=== PATIENT | male | born 2000 | race Caucasian/White ===

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

== ENCOUNTER 2018-08-31 17:24 | Emergency (ER) | payer BC ==
--- NOTE | 2018-08-31 18:16 | EDPHY ---
H & P Stated Complaint: low bk pain, slipped playing flag football Time Seen by Provider: 08/31/18 18:16 HPI/ROS: HPI CHIEF COMPLAINT: Low back pain. HISTORY OF PRESENT ILLNESS: 18-year-old male, otherwise healthy without any significant medical history presents emergency room with low back pain. Patient reports to me was playing flag football, slipped and fell and landed on the low back lumbar region. Complains of low back pain. The pain does not radiate anywhere. He denies any leg pain. Denies saddle anesthesia, denies bowel or bladder incontinence. Denies leg weakness. Denies trouble walking. Pain is located lumbar spine low back. Midline. Past Medical History: Denies medical history Past Surgical History: Denies surgical history Social History: denies drugs alcohol tobacco. [employer] student. Family History: Denies ROS REVIEW OF SYSTEMS: 10 Systems were reviewed and negative with the exception of the elements mentioned in the history of present illness. Exam Constitutional appears well nontoxic triage nursing summary reviewed, vital signs reviewed, awake/alert. Eyes normal conjunctivae and sclera, EOMI, PERRLA. HENT normal inspection, atraumatic, moist mucus membranes, no epistaxis, neck supple/ no meningismus, no raccoon eyes. Respiratory clear to auscultation bilaterally, normal breath sounds, no respiratory distress, no wheezing. Cardiovascular rate normal, regular rhythm, no murmur, no edema, distal pulses normal. Gastrointestinal soft, non-tender, no rebound, no guarding, normal bowel sounds, no distension, no pulsatile mass. Genitourinary no CVA tenderness. Musculoskeletal back exam: No tenderness palpation. However patient complains of low lumbar back pain. Midline and paravertebral both sides. No leg weakness on exam. Otherwise neurovascular intact. No visible sign of trauma on exam. no midline vertebral tenderness, full range of motion, no calf swelling, no tenderness of extremities, no meningismus, good pulses, neurovascularly intact. Skin pink, warm, & dry, no rash, skin atraumatic. Neurologic awake, alert and oriented x 3, AAOx3, moves all 4 extremities equally, motor intact, sensory intact, CN II-XII intact, normal cerebellar, normal vision, normal speech. Psychiatric normal mood/affect. Heme/Lymph/Immune no lymphadenopathy. Differential Diagnosis: Includes but is not limited to in a particular order lumbar strain, lumbar compression fracture, nerve root compression, annular tear , disc herniation. Medical Decision Making: Here in emergency room the patient has a normal neurological exam complains of low back pain. No leg weakness, no saddle anesthesia. Plan for patient x-ray lumbar spine. Tylenol 1 g, and Flexeril 10 mg re-evaluate. Re-evaluation: X-ray of the lumbar spine reviewed. No evidence of malalignment or significant compression fracture. Recommend anti-inflammatory pain medicine. Recommend NSAIDs. Recommend ice. And rest. No vigorous activity. Additionally return precautions discussed with the patient understands return if he has developing worsening pain, numbness or tingling, referral pain down his legs. Worsening symptoms he understands. Recommend follow up a primary care doctor return if worse. 2014: Notified by Radiology that he has an old fracture of L5. Recommend patient follows up with Ortho Spine surgery. Recommend no aggressive maneuvers or playing football until cleared by neuro spine. No evidence of acute new fracture. This appears to be old. For recommend ortho spine follow up We have contacted him to update him on his imaging. And she return precautions as well as follow-up. Source: Patient - Medical/Surgical History Hx Asthma: No Hx Chronic Respiratory Disease: No Hx Diabetes: No Hx Cardiac Disease: No Hx Renal Disease: No Hx Cirrhosis: No Hx Alcoholism: No Hx HIV/AIDS: No Hx Splenectomy or Spleen Trauma: No Other PMH: denies - Social History Smoking Status: Never smoked Constitutional: Initial Vital Signs Temperature (C) 36.7 C 08/31/18 17:38 Heart Rate 68 08/31/18 17:38 Respiratory Rate 18 08/31/18 17:38 Blood Pressure 136/98 H 08/31/18 17:38 O2 Sat (%) 97 08/31/18 17:38 O2 Delivery Mode Room Air Allergies/Adverse Reactions: No Known Allergies Allergy (Verified 08/31/18 17:37) Home Medications: Medication Instructions Recorded Ibuprofen [Motrin (*)] 800 mg PO Q6-8PRN #10 tab 08/31/18 Medical Decision Making - Data Points Medications Given: Discontinued Medications Acetaminophen (Tylenol) 1,000 mg PO EDNOW ONE Stop: 08/31/18 18:27 Last Admin: 08/31/18 18:28 Dose: 1,000 mg Cyclobenzaprine HCl (Flexeril) 10 mg PO EDNOW ONE Stop: 08/31/18 18:27 Last Admin: 08/31/18 18:28 Dose: 10 mg Departure - Departure Disposition: Home, Routine, Self-Care Clinical Impression: Lumbar strain Qualifiers: Encounter type: initial encounter Qualified Code(s): S39.012A - Strain of muscle, fascia and tendon of lower back, initial encounter Condition: Good Instructions: Low Back Strain (ED) Additional Instructions: 1. Recommend rest over the next 72 hr no vigorous activity 2. Recommend ice 3. Recommend anti-inflammatory pain medicine like Tylenol Motrin you may alternate these every 6-8 hours 4. Return if worse. Referrals: Tr West MD [Medical Doctor] - As per Instructions Prescriptions: Ibuprofen [Motrin (*)] 800 mg PO Q6-8PRN #10 tab
[2018-08-31] MEDS ORDERED: ACETAMINOPHEN 500 MG TAB PO ONE (18:26)
[2018-08-31] MEDS ORDERED: CYCLOBENZAPRINE 10 MG TAB PO ONE (18:26)
[2018-08-31 19:42] VITALS: BP 115/67
== END 2018-08-31 19:42 | disposition home or self-care (01) ==
DX: S39.012A Strain of muscle, fascia and tendon of lower back, initial encounter (principal); W01.0XXA Fall on same level from slipping, tripping and stumbling without subsequent striking against object, initial encounter; Y92.321 Football field as the place of occurrence of the external cause; Y93.62 Activity, american flag or touch football